=== PATIENT | female | born 2000 | race Caucasian/White ===

== ENCOUNTER 2023-05-18 18:59 | Emergency (ER) | payer OTHER, SELFPAY ==
[2023-05-18 19:25] VITALS: BP 134/79; PULSE 68; RESP 18; TEMP 36.7; O2SAT 95; BMI 28.3
--- NOTE | 2023-05-18 19:53 | ED_ITS ---
Discharge Plan Disposition Patient Disposition: Home, Self-Care Condition: Good Prescriptions Prescriptions: New methylprednisolone [Medrol (Oswald)] 4 mg tablets,dose pack See Rx Instructions .Route .COMPLEX 6 Days Qty: 21 0RF Rx Instructions: taper pack; amoxicillin 875 mg tablet 875 mg PO Q12H 10 Days Qty: 20 0RF ofloxacin 0.3 % drops 10 drp otic (ear) Q12H 14 Days Qty: 20 0RF Rx Instructions: apply 10 drops to both ears every 12hrs for 14 days No Action metformin 500 mg tablet 500 mg PO DAILY norethindrone ac-eth estradiol [03/24 (21)] 1-20 mg-mcg tablet 1 tab PO DAILY escitalopram oxalate [Lexapro] 20 mg Tablet 20 mg PO DAILY aripiprazole 5 mg tablet 5 mg PO DAILY Referrals Follow up/Referrals: Timbo Duong MD [Primary Care Provider] - See instructions Activity Restrictions/Add. Instructions Additional Instructions/Restrictions: *Monitor Temp, Over the counter Motrin or Tylenol as directed/as needed Tylenol every 4 hours and Motrin every 6 hours (as long as your family doctor has told you that you can take it) for fever or pain. and straight to ER if unable to lower temp less than 101.0 after medication given *Warm salt water gargles may help to soothe the throat *Throat Lozenges? *Warm fluids like tea with honey may help to soothe the throat? *Sleep elevated? *Humidifier/Vaporizer may help with sore throat and nasal congestion Take medication as prescribed Use ear drops as prescribed Your throat swab was sent for culture. Those results are typically sent to your primary care. Be sure to follow up in 2-3 days with your family doctor/primary care physician if no improvement so they can review those result and treat if necessary. If you don?t have a primary care doctor, I recommend you get one but in the mean time, you will have to return to a walk in clinic Follow up IMMEDIATELY for new or worsening symptoms or no Noticeable improvement over the next 48-72 hours. 911 for difficulty breathing or swallowing Clinical Impressions Clinical Impression: Otitis media Instructions Patient Instructions: Middle Ear Infection, Sore Throat Discharge ED Provider: Pam Jaquez [facility] [place] General Stated complaint: Sore throat,bilateral earache,Fever Mode of Arrival: Ambulatory Source of Information: Patient Limitations: No Limitations Time Seen by Provider: 05/18/23 19:30 Description of Symptoms (Recalled from Triage Doc. by RN): PATIENT C/O SORE THROAT, COUGH, FEVERS, AND EAR PRESSURE SINCE LAST SUNDAY HEENT Symptoms (Recalled from RN notes): Yes Resp Symptoms (Recalled from RN notes): Yes Skin Symptoms (Recalled from RN notes): No MS Symptoms (Recalled from RN notes): No Functional Status (Recalled from RN notes): WNL History of Present Illness Provider Complaint: Patient states that she started feeling ill last Sunday with sore throat, pain and pressure in both ears, fever and cough States that she was seen at an Urgent Care in [facility] and they tested her for strep, flu and COVID and they was all negative States she is still not feeling any better and this is the worse sore throat she has ever had so today when she was still not feeling any better she came in to get checked Related Data Home Medications Medication Instructions Recorded Confirmed aripiprazole 5 mg tablet 5 mg PO DAILY 05/18/23 05/18/23 escitalopram oxalate 20 mg tablet 20 mg PO DAILY 05/18/23 05/18/23 (Lexapro) metformin 500 mg tablet 500 mg PO DAILY 05/18/23 05/18/23 norethindrone acetate 1 mg-ethinyl 1 tab PO DAILY 05/18/23 05/18/23 estradiol 20 mcg tablet (Junel) Previous Rx's Medication Instructions Recorded amoxicillin 875 mg tablet 875 mg PO Q12H 10 days #20 tabs 05/18/23 methylprednisolone 4 mg tablets in See Rx Instructions .Route 05/18/23 a dose pack (Medrol (Oswald)) .COMPLEX 6 days #21 tabs ofloxacin 0.3 % ear drops 10 drp otic (ear) Q12H 14 days #20 05/18/23 mL Allergies Allergy/AdvReac Type Severity Reaction Status Date / Time No Known Allergies Allergy Verified 05/18/23 19:49 Worker's Comp Is this a Worker's Comp case?: No [facility] Disclaimer: The information contained in this section may have been updated after the patient was seen, as this information can be updated by other users. Medical History (Updated 05/18/23 @ 20:14 by Pam Jaquez APRN) UTI (urinary tract infection) Kidney stones Depression Anxiety Surgical History (Updated 05/18/23 @ 19:49 by Adrianna Ponce RN) History of tympanostomy tube placement Social History Smoking Status: Unknown if ever smoked alcohol intake: never current occupational status: employed Travel in the last 8 weeks: None ROS Obtained: Yes All systems reviewed & no additional complaints except as documented and Yes Systems reviewed as appropriate & no additional complaints except as documented Constitutional Constitutional: Reports system reviewed and no additional complaints, except as documented, Reports as per HPI and Reports fever(s) ENT Ears, Nose, Mouth, and Throat: Reports system reviewed and no additional complaints, except as documented, Reports as per HPI, Reports otalgia, Reports nasal congestion and Reports sore throat Cardiovascular Cardiovascular: Reports system reviewed and no additional complaints, except as documented and Reports as per HPI Respiratory Respiratory: Reports system reviewed and no additional complaints, except as documented, Reports as per HPI and Reports cough Gastrointestinal Gastrointestingal: Reports system reviewed and no additional complaints, except as documented and as per HPI Physical Exam General General appearance: alert and in no apparent distress ENT ENT exam: Present mucous membranes moist Expanded ENT Exam TM/Canal exam: Bilateral TM: erythema and loss of landmarks (small amount of blood noted, unable to visualize TM completely) Throat exam: Present tonsillar erythema (worse on left side) Respiratory Respiratory exam: Present normal lung sounds bilaterally; Absent respiratory distress or wheezes Cardiovascular Cardiovascular exam: Present regular rate, normal rhythm and normal heart sounds Neurological Exam Neurological exam: Present alert, oriented X3 and normal gait Medical Decision Making Chandrakant Inquiry Pt receiving controlled substance: No Chandrakant was queried for this patient: No Vital Signs: 05/18/23 19:25 Temperature 98.1 F Temperature Source Oral Pulse Rate [Right Brachial] 68 Respiratory Rate 18 Blood Pressure [Right Arm] 134/79 Blood Pressure Mean [Right Arm] 97 Blood Pressure Source [Right Arm] Automatic Cuff Blood Pressure Position [Right Arm] Sitting 02 Sat by Pulse Oximetry 95 Oxygen Delivery Method Room Air Lab Data Lab results reviewed: Yes I reviewed the patient's lab results. Orders (Tests/Meds): ORDERS Category Date Time Status Monoscreen (Rapid) Stat Lab 05/18/23 19:30 Received
[2023-05-18 19:59] LABS: Monoscreen (Rapid) Negative (Negative)
[2023-05-18 20:11] VITALS: BP 134/79; PULSE 68; RESP 18; TEMP 36.7; O2SAT 95
[2023-05-18] MEDS: AMOXICILLIN 500MG CAPSULE 500 MG PO (20:15)
[2023-05-19 09:19] LABS: UTC Strep Screen (Rapid) Negative (Negative)
== END 2023-05-18 20:20 | disposition home or self-care (01) ==
PROVIDERS: Emergency Provider Nurse Practitioner; PCP Internal Medicine
DX: H66.93 Otitis media, unspecified, bilateral (principal); J02.9 Acute pharyngitis, unspecified; R50.9 Fever, unspecified; R05.9 Cough, unspecified; F32.A Depression, unspecified; F41.9 Anxiety disorder, unspecified
CPT/HCPCS: 86318; 87880; 99204; 99212; G0463